=== PATIENT | female | born 1960 | race Native Hawaiian/Other Pacific Islander ===

== ENCOUNTER 2018-01-23 10:17 | Outpatient (CLI) | payer BC | END 2018-01-23 20:01 | disposition home or self-care (01) | LOC: RAD 10:17 | DX: J44.9 Chronic obstructive pulmonary disease, unspecified (principal) ==

== ENCOUNTER 2019-04-15 12:56 | Outpatient (CLI) | payer OTHER | END 2019-04-15 14:10 | disposition short-term general hospital (02) | LOC: AMB 12:56 | DX: G43.909 Migraine, unspecified, not intractable, without status migrainosus (principal); H54.7 Unspecified visual loss | CPT/HCPCS: A0425; A0429 ==

== ENCOUNTER 2019-10-29 08:07 | Day surgery (SDC) | payer OTHER | END 2019-10-29 09:30 | disposition home or self-care (01) | LOC: OR 08:07 | PROC: 3E0R33Z Introduction of Anti-inflammatory into Spinal Canal, Percutaneous Approach (ICD-10-PCS; principal; 2019-10-29) | PROC: B01BYZZ Fluoroscopy of Spinal Cord using Other Contrast (ICD-10-PCS; 2019-10-29) | DX: M51.16 Intervertebral disc disorders with radiculopathy, lumbar region (principal) | CPT/HCPCS: J1020; J3301 ==

== ENCOUNTER 2021-03-27 11:32 | Outpatient (CLI) | payer OTHER ==
[2021-04-09 14:33] LABS: PLATELET COUNT 172 K/uL (152-353)
[2021-04-09 14:35] LABS: POTASSIUM 4.3 mmol/L (3.6-5.2)
== END 2021-03-27 13:32 | disposition home or self-care (01) ==
LOC: LAB 11:32
PROVIDERS: ATTEND Family Medicine
DX: K21.9 Gastro-esophageal reflux disease without esophagitis (principal); G43.909 Migraine, unspecified, not intractable, without status migrainosus; Z78.0 Asymptomatic menopausal state; R03.0 Elevated blood-pressure reading, without diagnosis of hypertension; Z82.49 Family history of ischemic heart disease and other diseases of the circulatory system; I49.9 Cardiac arrhythmia, unspecified; F17.200 Nicotine dependence, unspecified, uncomplicated; E55.9 Vitamin D deficiency, unspecified; G89.4 Chronic pain syndrome
CPT/HCPCS: 80053; 80061; 81000; 82306; 83735; 84439; 84443; 85027; 93005